=== PATIENT | female | born 1980 | race Caucasian/White ===

== ENCOUNTER 2023-01-19 12:30 | Emergency (ER) | payer OTHER, SELFPAY ==
[2023-01-19] VITALS (11 sets, daily range): BP systolic 118–153; BP diastolic 57–93; PULSE 59–92; RESP 16; TEMP 36.3; O2SAT 92–100; BMI 26.5
--- NOTE | 2023-01-19 13:01 | ED_ITS ---
HPI - Abdominal Pain General Chief Complaint: Abdominal Pain Stated Complaint: intense stomach pain Time Seen by Provider: 01/19/23 14:52 Source: patient Mode of arrival: Family Vehicle Limitations: no limitations History of Present Illness HPI narrative: This is a 42-year-old female with history of gastric bypass on Lexapro for anxiety. Patient presents with complaint of left upper quadrant abdominal pain that sometimes radiates to her back patient states it has been on and off since August this most recent episode has been much worse for the past 2 weeks. She states it does not seem to be related to anything in particular seems to be very random. Can sometimes last 10 minutes can sometimes last hours. She states last night was persistent throughout the night and quite intense. She denies fevers or chills. No cold cough or congestion. No chest pain or shortness of breath. She is not had any nausea or vomiting. She states she is stooling regularly with soft formed stools, no black or bloody stools. No diarrheal stools. She denies dysuria, urgency or frequency. She states pain starts in the front and has always been in the front and occasionally goes to the back. She states she is never started with flank pain. Patient notes she had a gastric bypass in the past. She states that she did get an endoscopy and was found to have a possible ulcer with a prior episode of pain like this. She was on medication for it for several years which never seemed to help the pain. She has since stopped that medication and had a couple years where she did not have symptoms. She denies any other surgeries. No known drug allergies. No tobacco, alcohol 1 or 2 times weekly 1 or 2 drinks at a time. Patient denies THC or other illicit. She states ayana Cabrera is her primary care provider. She was evaluated in the office was given referral to GI but was told to come to the hospital for evaluation as well. She states her referral has been told she does not have an appointment until April. Related Data Previous Rx's Medication Instructions Recorded oxycodone-acetaminophen 5 mg-325 1 tab PO QID PRN pain #10 tabs 01/19/23 mg tablet (Percocet) Allergies Allergy/AdvReac Type Severity Reaction Status Date / Time No Known Drug Allergies Allergy Verified 01/19/23 12:42 Review of Systems Review of Systems ROS Unobtainable: All systems reviewed & are unremarkable except as noted in HPI and below Patient History Social History Smoking Status: Never smoker Smoking Status: Never smoker alcohol intake frequency: a few times a week Substance Use Type: marijuana Exam Narrative Exam Narrative: GENERAL: Alert and oriented x three, female in mild distress. HEENT: Head normocephalic, atraumatic, EOMI, pupils reactive, face symmetric, moist mucous membranes NECK: Supple, full range of motion CARDIOVASCULAR: Regular rate and rhythm without murmurs, rubs or gallops. RESPIRATORY: Breath sounds equal bilaterally, no wheezes rales or rhonchi. ABDOMEN: Soft, nontender. Nondistended. Normoactive bowel sounds all 4 quadrants. No guarding or rebound, rigidity, no mass : No CVA tenderness EXTREMITIES: Normal range of motion, no clubbing or edema. Neurovascularly intact NEUROLOGICAL: Cranial nerves II through XII grossly intact. Moving all extremities SKIN: Warm, dry, no petechiae, no rashes or lesions. Initial Vital Signs Initial Vital Signs: Vital Signs Temperature 97.4 F L 01/19/23 12:39 Pulse Rate 79 01/19/23 12:39 Respiratory Rate 16 01/19/23 12:39 Blood Pressure 153/60 H 01/19/23 12:39 Pulse Oximetry 100 01/19/23 12:39 Oxygen Delivery Method Room Air 01/19/23 12:39 Course Orders Ordered: ED Orders 01/19/23 12:55 Complete Blood Count AUTO DIFF Stat Comprehensive Metabolic Panel Stat Lipase Stat 01/19/23 13:15 UA Complete [Urinalysis and Microscopic] Stat 01/19/23 14:44 CT abdomen pelvis w con Stat 01/19/23 15:56 US pelvic complete Stat Discontinued Medications Hydromorphone HCl (Hydromorphone 1 Mg Inj) 1 mg IV NOW ONE Stop: 01/19/23 17:36 Last Admin: 01/19/23 17:56 Dose: 1 mg Documented By: JAZMÍN Sodium Chloride (Normal Saline 0.9%) 1,000 mls @ 1,000 mls/hr IV BOLUS ONE Stop: 01/19/23 15:04 Last Infusion: 01/19/23 16:09 Dose: 0 mls/hr Documented By: Admin: 01/19/23 14:26 Dose: 1,000 mls/hr Documented By: JAZMÍN Ketorolac Tromethamine (Ketorolac 30 Mg/Ml Vial) 15 mg IV NOW ONE Stop: 01/19/23 14:06 Last Admin: 01/19/23 14:25 Dose: 15 mg Documented By: JAZMÍN Morphine Sulfate (Morphine 4 Mg/Ml Inj) 4 mg IV NOW ONE Stop: 01/19/23 15:53 Last Admin: 01/19/23 16:00 Dose: 4 mg Documented By: JAZMÍN Ondansetron HCl (Ondansetron 4 Mg Odt) 4 mg PO NOW PRN PRN Reason: Nausea And Vomiting Ondansetron HCl (Ondansetron 4 Mg/2 Ml Inj) 4 mg IV NOW PRN PRN Reason: Nausea And Vomiting Last Admin: 01/19/23 13:54 Dose: 4 mg Documented By: KORI Vital Signs Vital signs: Vital Signs - 8 hr 01/19/23 12:39 01/19/23 14:32 01/19/23 14:33 Temperature 97.4 F L Pulse Rate 79 59 L 59 L Respiratory Rate 16 Blood Pressure 153/60 H Pulse Oximetry 100 98 100 Oxygen Delivery Method Room Air 01/19/23 14:33 01/19/23 16:03 01/19/23 16:06 Temperature Pulse Rate 74 Respiratory Rate Blood Pressure 123/66 126/81 Pulse Oximetry 92 Oxygen Delivery Method 01/19/23 16:06 01/19/23 16:30 01/19/23 16:30 Temperature Pulse Rate 92 H 86 Respiratory Rate Blood Pressure 118/57 L Pulse Oximetry 100 98 Oxygen Delivery Method 01/19/23 17:17 01/19/23 17:18 01/19/23 17:18 Temperature Pulse Rate 66 63 Respiratory Rate Blood Pressure 140/75 Pulse Oximetry 99 99 Oxygen Delivery Method 01/19/23 17:30 01/19/23 17:30 01/19/23 18:00 Temperature Pulse Rate 63 Respiratory Rate Blood Pressure 139/77 132/93 H Pulse Oximetry 100 Oxygen Delivery Method 01/19/23 18:00 01/19/23 18:30 Temperature Pulse Rate 77 72 Respiratory Rate Blood Pressure Pulse Oximetry 99 98 Oxygen Delivery Method Room Air MDM - Abdominal Pain Lab Data 01/19/23 12:55 01/19/23 12:55 Labs: Lab Results 01/19/23 01/19/23 01/19/23 Range/Units 12:55 12:55 13:15 WBC 8.6 (4.5-11.0) X10^3/uL RBC 4.58 (4.0-5.2) X10^6/uL Hgb 10.9 L (12.0-16.0) g/dL Hct 34.5 L (36-46) % MCV 75.3 L (80-100) fL MCH 23.7 L (26-34) PG MCHC 31.5 (30-36) % RDW 16.3 H (11.6-14.8) % Plt Count 339 (150-400) X10^3/uL Neut % (Auto) 70.2 (50-75) % Lymph % (Auto) 23.5 L (25-40) % [place] % (Auto) 5.1 (3-14) % Eos % (Auto) 0.4 L (2-4) % Baso % (Auto) 0.8 (0-2) % Neut # (Auto) 6100 (6729-2563) /uL Lymph # (Auto) 2000 (2513-4006) /uL [place] # (Auto) 400 (0-900) /uL Eos # (Auto) 0 (0-450) /uL Baso # (Auto) 100 (0-100) /uL Sodium 134 L (137-145) mmol/L Potassium 3.9 (3.4-5.1) mmol/L Chloride 102 (98-107) mmol/L Carbon Dioxide 23 (22-32) mmol/L BUN 16 (7-17) mg/dL Creatinine 0.68 (0.52-1.04) mg/dL Estimated GFR > 60 (>60) mL/min BUN/Creatinine Ratio 23.5 H (6-22) Glucose 90 (70-100) mg/dL Calcium 8.7 (8.4-10.2) mg/dL Total Bilirubin 0.4 (0.2-1.3) mg/dL AST 34 (14-36) IU/L ALT 21 (<35) IU/L Alkaline Phosphatase 79 (38-126) U/L Total Protein 7.2 (6.3-8.2) g/dL Albumin 4.2 (3.5-5.0) g/dL Globulin 3.0 (1.7-4.1) g/dL Albumin/Globulin Ratio 1.4 (1.0-2.8) Lipase 182 (23-300) U/L Urine Color Yellow Urine Appearance Clear Urine pH 5.5 (4.5-8.0) Ur Specific [place] <=1.005 (1.000-1.035) Urine Protein Negative (Negative) Urine Glucose (UA) Negative (Negative) g/dL Urine Ketones Trace H (NEGATIVE) Urine Occult Blood Negative (Negative) Urine Nitrate Negative (Negative) Urine Bilirubin Negative (NEGATIVE) Urine Urobilinogen 0.2 (0.2) E.U./dL Ur Leukocyte Esterase Trace H (NEGATIVE) Urine RBC 0-1/hpf (0-5/HPF) Urine WBC 0-1/hpf (0-5/HPF) Ur Squamous Epith Cells 1-5 /hpf (0-5/HPF) Urine Bacteria None seen (None) Ur Culture Indicated? Cult not indicated Point of care testing: Point of Care Testing Test Results Negative Imaging Data CT scan - abdomen/pelvis: Radiologist's Impression: Close Pelvis Ultrasound (Signed) Philip Reynaga - 01/19/23 Abdomen/Pelvis CT (Signed) Philip Reynaga - 01/19/23 Launch?[place] [address] CT Scan Report Signed Patient: Justina Lauren MR#: [id number] : 1980 Acct:[id number] Age/Sex: 42 / F Date of Service: 01/19/23 Loc: ED Accession Number: [id number] ?? Procedure: CT abdomen pelvis w con Ordering Provider: Kamille Webb D.O. PROCEDURE:? CT ABDOMEN PELVIS W CON ? INDICATIONS:? LUQ ? TECHNIQUE:? After the administration of intravenous contrast, axial sections acquired from the lung bases to the pubic symphysis.? Coronal and sagittal reformats were performed.? For radiation dose reduction, the following was used:? automated exposure control, adjustment of mA and/or kV according to patient size.? ? COMPARISON:? None. ? FINDINGS:? Image quality:? Excellent.? ? Lung bases:? Unremarkable. Heart:? No significant findings. ? ABDOMEN: Liver:? Unremarkable.? ? Gallbladder:? Unremarkable.? ? Biliary ducts:? Unremarkable.? ? Pancreas:? Unremarkable.? ? Spleen:? Unremarkable.? ? Adrenal Glands:? Unremarkable.? ? Kidneys and Ureters:? Unremarkable.? ? ? Stomach and Bowel:? Stomach, small bowel loops, and colon are unremarkable.? Gastric bypass. Peritoneum:? No abnormal intraperitoneal fluid.? No free air.? ? Ventral Wall: ? No hernias.? Abdominal Nodes:? No retroperitoneal or mesenteric adenopathy by size criteria.? Vessels:? Dilated left arcuate vasculature and gonadal vasculature. ? PELVIS: Pelvic Organs:? Right-sided corpus luteum.? ? Bladder:? Unremarkable.? ? Pelvic Nodes: No enlarged lymph nodes.? Miscellaneous: No hernias are seen. ? ? ? Bones:? Left hemipelvis bone islands.? IMPRESSION:? No acute abnormality in the left upper quadrant to explain the patient's pain.? Gastric bypass without complication. ? Dilated left arcuate vasculature and gonadal vasculature, which can be seen in the setting of pelvic congestion syndrome. ? ? Dictated by: Philip Reynaga M.D. on 01/19/2023 at 14:37 ? ? Approved by: Philip Reynaga M.D. on 01/19/2023 at 14:40?? US - BUSINESS CONSULT: Radiologist's Impression: [place] [address] Ultrasound Report Signed Patient: Jutsina Lauren MR#: [id number] : 1980 Acct:[id number] Age/Sex: 42 / F Date of Service: 01/19/23 Loc: ED Accession Number: [id number] ?? Procedure: US pelvic complete Ordering Provider: Kamille Webb D.O. PROCEDURE:? US PELVIC COMPLETE ? INDICATIONS:? FOLLOW UP ER CT -? ?PELVIC CONGESTION SYNDROME ? TECHNIQUE:? Real-time scanning was performed of the pelvic organs, with image documentation.? Additional endovaginal scanning was necessary due to incomplete visualization of the adnexal and endometrial structures by transabdominal scanning.? ? COMPARISON:? None. ? FINDINGS:? ?? Uterus:? Uterus is retroverted and normal in size at 8.0 x 5.9 x 4.7 cm. The myometrium is homogeneous. ? The endometrium measures 8 mm combined thickness.? Anechoic endometrial cyst, benign.? Prominent arcuate vasculature. ? Ovaries:? The right ovary measures 3.3 x 2.1 x 2.1 cm, with a calculated ovarian volume of 6 cc. The left ovary measures 3.2 x 1.7 x 1.7 cm, with a calculated ovarian volume of 5 cc. The ovaries have a normal sonographic appearance. Less than 12 follicles can be seen in each ovary.? No adnexal masses are seen.? Right-sided corpus luteum. ? Other:? No pathologic free abdominal or pelvic fluid. ? ? IMPRESSION:? Right-sided corpus luteum without ovarian edema to suggest torsion. ? Prominent arcuate vasculature, which can be seen in the setting of pelvic congestion syndrome. ? ? We strive to produce accurate, complete, and clear reports of imaging services. To assist us in improving patient care, this report was composed using standard report templates and voice recognition software. Therefore, it may contain abnormal punctuation, insertions and/or omissions. Occasional wrong-word or sound-alike substitutions may occur. Though we review the report and make efforts to correct it, we do recommend that the report be read carefully in proper context to recognize any text inaccuracies. ? ? Dictated by: Philip Reynaga M.D. on 01/19/2023 at 16:15 ? ? Approved by: Philip Reynaga M.D. on 01/19/2023 at 16:18?? MDM Narrative Medical decision making narrative: This is a 42-year-old female with acute on chronic left upper quadrant pain. Patient's exam is overall reassuring but she is not actively in pain at this moment. She did take some tramadol earlier today which was helpful. Patient has had a prior gastric bypass, she is also had a prior EGD and was told she had possible ulcer and was on medication but had her pain intermittently while on that medication. By her description that was several years ago. Patient's labs CBC, CMP and lipase do not show a clear cause, she has some leukocyte esterase in her urine but no infectious symptoms and her pain is left upper quadrant no lower or pelvic pain. Because of patient's surgical history CT abdomen pelvis was obtained. Shows possible pelvic congestion syndrome type changes on the chest patient's symptoms are very much more on the left upper abdomen. Ultrasound was obtained is also consistent. I did speak with Dr. Souza from OBGYN patient states she is really not having pelvic pain so seems less likely source but patient can follow-up with them, can do pain management and they will sometimes refer these patients out for embolization if needed. Discussed with patient potential sources of pain can also include ulcer, gastritis, would possibly benefit from EGD. Also possibility of having adhesions from prior surgery and would still recommend EGD scope. As well as referral to OBGYN. Discharge Plan Departure Patient Disposition: Home Clinical Impression: Abdominal pain Instructions: DI for Abdominal Pain-Adult Activity Restrictions/Additional Instructions: Follow-up with your physician for recheck as needed. I would continue with your referral to Gastroenterology but also included is referral to General surgery they may be able to see you sooner for possible EGD or colonoscopy. Please call for an appointment. Your workup showed changes on ultrasound and CT for possible pelvic congestive syndrome, please follow-up with OBGYN. Referral is included below. I would recommend returning to a PPI such as omeprazole 40 mg daily. You may take pain medication as prescribed. This medication can make you sleepy do not drive, perform hazardous activities or make any major decisions while taking it. This medication will make you constipated please take a stool softener once to twice daily until stools are soft and regular. Prescription sent to [facility] in [place] Please return for new or worsening abdominal back or flank pain, passing out, fevers, persistent vomiting, black or bloody stools, lightheadedness or passing out or other new or concerning changes. Prescriptions: New oxycodone-acetaminophen [Percocet] 5-325 mg tablet 1 tab PO QID PRN (Reason: pain) Qty: 10 0RF Referrals: Nish Llamas MD [Physician] - Provider,Chadwick MANNING [Primary Care Provider] - Stan Souza MD [Physician] - Stand Alone Forms: Patient Portal/API
[2023-01-19 13:06] LABS: Add Manual Diff / Slide Review NO; Basophils Absolute Auto 100 /uL (0-100); Basophils Percent Auto 0.8 % (0-2); Eosinophils Absolute Auto 0 /uL (0-450); Eosinophils Percent Auto 0.4 % (2-4); Hematocrit 34.5 % (36-46); Hemoglobin 10.9 g/dL (12.0-16.0); Lymphocytes Absolute Auto 2000 /uL (1100-4500); Lymphocytes Percent Auto 23.5 % (25-40); Mean Corpuscular HGB Conc 31.5 % (30-36); Mean Corpuscular Hemoglobin 23.7 PG (26-34); Mean Corpuscular Volume 75.3 fL (80-100); Monocytes Absolute Auto 400 /uL (0-900); Monocytes Percent Auto 5.1 % (3-14); Neutrophils Absolute Auto 6100 /uL (1500-7000); Neutrophils Percent Auto 70.2 % (50-75); Platelet Count 339 X10^3/uL (150-400); Red Blood Cell Count 4.58 X10^6/uL (4.0-5.2); Red Cell Distribution Width 16.3 % (11.6-14.8); White Blood Cell Count 8.6 X10^3/uL (4.5-11.0)
[2023-01-19 13:19] LABS: Alanine Aminotransferase 21 IU/L (<35); Albumin 4.2 g/dL (3.5-5.0); Albumin Globulin Ratio 1.4 (1.0-2.8); Alkaline Phosphatase 79 U/L (38-126); Aspartate Aminotransferase 34 IU/L (14-36); BUN Creatinine Ratio 23.5 (6-22); Bilirubin Total 0.4 mg/dL (0.2-1.3); Blood Urea Nitrogen 16 mg/dL (7-17); Calcium 8.7 mg/dL (8.4-10.2); Carbon Dioxide 23 mmol/L (22-32); Chloride 102 mmol/L (98-107); Estimated Glomerular Filt Rate > 60 mL/min (>60); Glucose 90 mg/dL (70-100); HEMOLYSIS 58 (0-50); Lipase 182 U/L (23-300); Potassium 3.9 mmol/L (3.4-5.1); Sodium 134 mmol/L (137-145); Total Protein 7.2 g/dL (6.3-8.2)
[2023-01-19 13:40] LABS: Appearance Urine UA CLEAR; Bilirubin Urine UA NEGATIVE (NEGATIVE); Color Urine UA YELLOW; Glucose Urine UA NEGATIVE (Negative); Ketones Urine UA TRACE (NEGATIVE); Leukocyte Esterase Urine UA TRACE (NEGATIVE); Nitrite Urine UA NEGATIVE (Negative); Occult Blood Urine UA NEGATIVE (Negative); Protein Urine UA NEGATIVE (Negative); Specific Gravity Urine UA <=1.005 (1.000-1.035); Urobilinogen Urine UA 0.2 E.U./dL (0.2)
[2023-01-19 13:43] LABS: pH Urine UA 5.5 (4.5-8.0)
[2023-01-19 13:46] LABS: Bacteria Urine None Seen; Culture Indicated Urine Cult Not Indicated; RBC Urine 0-1/HPF (0-5/HPF); Squamous Epithelial Cell Urine 1-5 /HPF (0-5/HPF); WBC Urine 0-1/HPF (0-5/HPF)
[2023-01-19] MEDS: ONDANSETRON 4 MG/2 ML INJ IV (13:54)
[2023-01-19] MEDS: KETOROLAC 30 MG/ML VIAL 15 MG IV (14:25)
[2023-01-19] MEDS: SODIUM CHLORIDE 0.9% 1,000 ML 1000 ML IV (14:26)
--- NOTE | 2023-01-19 14:44 | DI.CT.S_ITS ---
PROCEDURE: CT ABDOMEN PELVIS W CON INDICATIONS: LUQ TECHNIQUE: After the administration of intravenous contrast, axial sections acquired from the lung bases to the pubic symphysis. Coronal and sagittal reformats were performed. For radiation dose reduction, the following was used: automated exposure control, adjustment of mA and/or kV according to patient size. COMPARISON: None. FINDINGS: Image quality: Excellent. Lung bases: Unremarkable. Heart: No significant findings. ABDOMEN: Liver: Unremarkable. Gallbladder: Unremarkable. Biliary ducts: Unremarkable. Pancreas: Unremarkable. Spleen: Unremarkable. Adrenal Glands: Unremarkable. Kidneys and Ureters: Unremarkable. Stomach and Bowel: Stomach, small bowel loops, and colon are unremarkable. Gastric bypass. Peritoneum: No abnormal intraperitoneal fluid. No free air. Ventral Wall: No hernias. Abdominal Nodes: No retroperitoneal or mesenteric adenopathy by size criteria. Vessels: Dilated left arcuate vasculature and gonadal vasculature. PELVIS: Pelvic Organs: Right-sided corpus luteum. Bladder: Unremarkable. Pelvic Nodes: No enlarged lymph nodes. Miscellaneous: No hernias are seen. Bones: Left hemipelvis bone islands. IMPRESSION: No acute abnormality in the left upper quadrant to explain the patient's pain. Gastric bypass without complication. Dilated left arcuate vasculature and gonadal vasculature, which can be seen in the setting of pelvic congestion syndrome. Dictated by: Philip Reynaga M.D. on 01/19/2023 at 14:37 Approved by: Philip Reynaga M.D. on 01/19/2023 at 14:40
--- NOTE | 2023-01-19 15:56 | DI.US.S_ITS ---
PROCEDURE: US PELVIC COMPLETE INDICATIONS: FOLLOW UP ER CT - ?PELVIC CONGESTION SYNDROME TECHNIQUE: Real-time scanning was performed of the pelvic organs, with image documentation. Additional endovaginal scanning was necessary due to incomplete visualization of the adnexal and endometrial structures by transabdominal scanning. COMPARISON: None. FINDINGS: Uterus: Uterus is retroverted and normal in size at 8.0 x 5.9 x 4.7 cm. The myometrium is homogeneous. The endometrium measures 8 mm combined thickness. Anechoic endometrial cyst, benign. Prominent arcuate vasculature. Ovaries: The right ovary measures 3.3 x 2.1 x 2.1 cm, with a calculated ovarian volume of 6 cc. The left ovary measures 3.2 x 1.7 x 1.7 cm, with a calculated ovarian volume of 5 cc. The ovaries have a normal sonographic appearance. Less than 12 follicles can be seen in each ovary. No adnexal masses are seen. Right-sided corpus luteum. Other: No pathologic free abdominal or pelvic fluid. IMPRESSION: Right-sided corpus luteum without ovarian edema to suggest torsion. Prominent arcuate vasculature, which can be seen in the setting of pelvic congestion syndrome. We strive to produce accurate, complete, and clear reports of imaging services. To assist us in improving patient care, this report was composed using standard report templates and voice recognition software. Therefore, it may contain abnormal punctuation, insertions and/or omissions. Occasional wrong-word or sound-alike substitutions may occur. Though we review the report and make efforts to correct it, we do recommend that the report be read carefully in proper context to recognize any text inaccuracies. Dictated by: Philip Reynaga M.D. on 01/19/2023 at 16:15 Approved by: Philip Reynaga M.D. on 01/19/2023 at 16:18
[2023-01-19] MEDS: MORPHINE 4 MG/ML INJ IV (16:00)
[2023-01-19] MEDS: HYDROMORPHONE 1 MG INJ IV (17:56)
== END 2023-01-19 18:41 | disposition home or self-care (01) ==
PROVIDERS: Emergency Provider Emergency Medicine; Family Provider Nurse Practitioner Family
DX: R10.12 Left upper quadrant pain (principal)
CPT/HCPCS: 36415; 74177; 76830; 76856; 80053; 81001; 81025; 83690; 85025; 96361; 96374; 96375; 99284; J1170; J1885; J2270; J2405; Q9967